=== PATIENT | male | born 1970 | race Caucasian/White ===

== ENCOUNTER 2018-08-22 10:45 | Day surgery (SDC) | payer BC ==
[~2018-08-22 10:45] MED LIST: CEFAZOLIN 1 Gram 1 GM/50 ML BAG IVPB ONE; CEFAZOLIN 1G VIAL IVP ONE; CEFAZOLIN 2 Gram 2 GM/50 ML BAG IVPB SCH; CELECOXIB 100 MG CAPSULE PO ONE; FAMOTIDINE 20MG TABLET PO ONE; MECLIZINE 25 MG TABLET PO ONE; METOCLOPRAMIDE 10 MG TABLET PO ONE; VANCOMYCIN HCL 1 MG in DEXTROSE 5 % IN WATER 250 ML IVPB ONE; WATER STERILE FOR INJECTION 20 ML VIAL MC ONE
[2018-08-22] MEDS ORDERED: GLYCOPYRROLATE 0.2 MG/ML ML IV ONE (10:46)
[2018-08-22] MEDS ORDERED: MIDAZOLAM HCL 2MG/2ML VIAL IV ONE (10:46)
[2018-08-22] MEDS ORDERED: TRANEXAMIC ACID 1,000 MG/10 ML ML IV ONE (10:46)
[2018-08-22] MEDS ORDERED: LIDOCAINE 2% MDV (20MG/ML) 20ML VIAL IV ONE (10:46)
[2018-08-22] MEDS ORDERED: PROPOFOL 10 MG/ML VIAL IV ONE (10:46)
[2018-08-22] MEDS ORDERED: KETAMINE HCL 100MG/1ML VIAL INJ ONE (10:46)
[2018-08-22 11:32] LABS: ABO GROUP O; ANTIBODY SCREEN NEGATIVE (NEGATIVE); RH TYPE NEGATIVE
[2018-08-22] MEDS ORDERED: RINGERS SOLUTION,LACTATED 1,000 ML IV ONE ×2 (13:49→14:23)
[2018-08-22] MEDS ORDERED: BUPIVACAINE 0.5% W/EPI MPF 30 ML VIAL SQ ONE (14:30)
[2018-08-22] MEDS ORDERED: HYDROMORPHONE HCL 2 MG/ML VIAL IM PRN (15:56)
[2018-08-22] MEDS ORDERED: BISACODYL 10 MG SUPP RC PRN (15:56)
[2018-08-22] MEDS ORDERED: ACETAMINOPHEN 325 MG TAB PO PRN (15:56)
[2018-08-22] MEDS ORDERED: ZOLPIDEM TARTRATE 5 MG TABLET PO PRN (15:56)
[2018-08-22] MEDS ORDERED: DIPHENHYDRAMINE HCL 25 MG CAPSULE PO PRN (15:56)
[2018-08-22] MEDS ORDERED: KETOROLAC 30 MG/ML VIAL IVP PRN ×2 (15:56)
[2018-08-22] MEDS ORDERED: NALOXONE 0.4 MG/1 ML VIAL IVP PRN (15:56)
[2018-08-22] MEDS ORDERED: ONDANSETRON HCL IV 4 MG/2 ML VIAL IVP PRN (15:56)
[2018-08-22] MEDS ORDERED: ACETAMINOPHEN W/ CODEINE 300MG/60MG TABLET PO PRN ×2 (15:56)
[2018-08-22] MEDS ORDERED: HYDROCODONE/APAP 10/325 TABLET PO PRN (15:56)
[2018-08-22] MEDS ORDERED: TRAMADOL HCL 50 MG TABLET PO PRN (15:56)
[2018-08-22] MEDS ORDERED: MAGNESIUM HYDROXIDE 30 ML UDC PO PRN (15:56)
[2018-08-22] MEDS ORDERED: AL HYDROX/MAG HYDROX 30ML UD PO PRN (15:56)
[2018-08-22] MEDS ORDERED: CEFAZOLIN 2 Gram 2 GM/50 ML BAG IVPB SCH (16:00)
[2018-08-22] MEDS: POTASSIUM CHLORIDE/D5-0.9%NACL 20 MEQ/1,000 ML BAG IV SCH (17:45)
[2018-08-22] MEDS: HYDROCODONE/APAP 10/325 TABLET PO PRN ×2 (17:55→22:12)
[2018-08-22] MEDS: CEFAZOLIN 1G VIAL IVP SCH (20:54)
[2018-08-22] MEDS: DOCUSATE SODIUM 100 MG CAPSULE PO SCH (21:00)
[2018-08-23] MEDS: POTASSIUM CHLORIDE/D5-0.9%NACL 20 MEQ/1,000 ML BAG IV SCH ×2 (01:50→07:55)
[2018-08-23] MEDS: HYDROCODONE/APAP 10/325 TABLET PO PRN ×3 (04:12→11:29)
[2018-08-23] MEDS: CEFAZOLIN 1G VIAL IVP SCH ×2 (04:24→11:29)
[2018-08-23 06:59] LABS: HEMATOCRIT 45.9 % (42.0-52.0); HEMOGLOBIN 15.3 gm/dl (14.0-18.0)
[2018-08-23 07:11] LABS: BLOOD UREA NITROGEN 12 mg/dL (6-20); CREATININE 0.7 mg/dL (0.7-1.2); EST GLOMERULAR FILTRATION RATE > 60 mL/min; GLUCOSE,RANDOM 162 mg/dL (74-109)
--- NOTE | 2018-08-23 08:27 | Rehab Evaluation ---
Patient Information - Patient Information Diagnosis: left knee primary OA Ordered Treatment: OT Evaluate and Treat Status: Initial Evaluation Surgery: Yes (left TKA) Date of Surgery: 08/22/18 Past Medical/Surgical Hx: PAST MEDICAL/SURGICAL HISTORY Past Surgical History TONSILECTOMY UVELECTOMY LEFT KNEE SCOPE PMH - Respiratory Hx Respiratory Disorders No PMH - Cardiovascular Hx Cardiovascular Disorders No Exercise Tolerance Good PMH - Neuro Hx Neurological Disorders No PMH - GI Hx Gastrointestinal Disorders No PMH - Hx Genitourinary Disorders No PMH - Endocrine Hx Endocrine Disorders No PMH - Musculoskeletal Hx Musculoskeletal Disorders Yes Hx Arthritis Yes PMH - Psych Hx Psychiatric Problems No PMH - Hematology/Oncology Hx Hematology/Oncology No Disorders Premorbid Status: Detail (Pt lives with significant other in a 2 story house. His bathroom is on the second floor but he has a commode if needed for use on the main level. He has a tub/shower combination and typically takes a bath. He has a standard height toilet. No grab bars are present in the bathroom. He is responsible for yard work, home mgmt and laundry tasks. He works and is on his feet all day but is not planning to return to work for 2 months. He has a commode and 2 wheeled walker.) Precautions: [place], Fall, Other (WBAT left LE) - Time With Patient Total Time Spent With Patient (Min): 30 Treatment Procedures: Detail (OT eval low complexity) Subjective Information - Subjective Information Per Patient Objective Data - Pain Pain Present: Yes (3-4/10) - Mental Status Patient Orientation: Oriented x3 - Visual Perception Appears within normal limits for therapeutic activities - ROM Within normal limits (Sabino UE AROM WNL) - Strength/Tone Within normal limits (Sabino UE strength WNL) - Coordination Appears within normal limits for therapeutic activities - Bed Mobility Independent (Ind with supine to sit) - Transfers Independent (Ind with sit to stand from EOB) - Balance Balance Sitting: Good Balance Standing: Good - Sensation Intact - Gait Detail (Pt ambulating in room with 2 wheeled walker and SBA) - ADL's/IADL's Detail (Pt educated and able to demonstrate learning of modified LE dressing techniques including doffing briefs and donning underwear, jeans and slip on shoes. Pt did require minimal assist to pull shoe over left heel but he reports his S.O. will assist if needed. Reviewed kitchen and shower safety and modifications, pt verbalized learning.) Therapy Assessment - Therapy Assessment Detail (Pt is Ind with modified LE dressing techniques.) Problem List - Problem List Occupational Therapy Problem List: Detail (No current IP OT problems identified.) Goals - Goals Occupational Therapy Goals: No current IP OT goals identified. Prognosis - Prognosis Good Plan - Plan Occupational Therapy Plan: No further IP OT recommended. Thank you for this referral.
[2018-08-23] MEDS: DOCUSATE SODIUM 100 MG CAPSULE PO SCH (09:24)
[2018-08-23] MEDS ORDERED: FERROUS SULFATE 325 MG TAB PO SCH (10:00)
[2018-08-23] MEDS ORDERED: RIVAROXABAN 10 MG TABLET PO SCH (10:00)
--- NOTE | 2018-08-23 10:10 | Operative Note ---
DATE OF SURGERY: 08/22/2018 PREOPERATIVE DIAGNOSIS: End-stage arthrosis of the left knee. POSTOPERATIVE DIAGNOSIS: End-stage arthrosis of the left knee. OPERATION: Cemented left total knee arthroplasty using [employer] II components with a size 6 Oxinium femur, a size 6 stem tibia baseplate, a 9 mm lipped tibial insert, and a 35 mm all plastic patella. STAFF SURGEON: Kenneth Marcos MD ANESTHESIA: Spinal. PREPARATION: Chloraprep. INDIVIDUAL CONSIDERATIONS: None. PROCEDURE: The patient was taken to the operating room, placed supine on the operating room table. He had a successful induction of a spinal anesthetic. The left lower extremity was prepped and draped in the usual fashion. The limb was elevated and tourniquet was inflated to 300 mmHg. The patient had a midline approach to the knee. Sharp dissection carried down through skin and subcutaneous tissue. Small veins were coagulated with a Bovie. A medial arthrotomy was performed. The patella was everted and the knee was flexed. The patient had exposed bone in the medial and patellofemoral compartments with large osteophytes. Fat pad was resected, ACL was sacrificed, and provisional anterior meniscectomies were performed. The capsule was released from the medial proximal tibia. The initial femoral home health care respiratory therapist hole was then made freehand. The intramedullary femoral cutting jig was placed. It was cut in 7.0 degrees of valgus and adjusted for rotation and secured with pins for a 10 mm resection. The initial transverse cut was then made. The skin guide was placed in the anterior and posterior home health care respiratory therapist holes. It was found that a size 6 would be appropriate. The anterior and posterior cuts followed by chamfer cuts were made. Osteophytes removed, and a size 6 trial was placed and found to fit well. The tibia was brought forward, and the remainder of the meniscal remnants removed with a Bovie. The extraarticular tibial cutting jig was placed. It was cut in neutral with a 3-degree AP slope. Care was taken to adjust for rotation and flexion using the extraarticular alignment guide and bony landmarks. It was set for a 9 mm resection keyed off the high lateral side and secured with pins. When cutting the tibia, care was taken to preserve the PCL insertion on the tibia. It was found that a size 6 would be appropriate. It was adjusted for rotation and secured with pins. With a 9 mm trial and femoral trial, there was excellent motion and stability, ligamentous balance, and rotation alignment were thought to be normal. Femoral home health care respiratory therapist holes were impacted and the tri-flange tibial stamp was impacted, and these trial components were removed. The patient had a very thick patella, and roughly 9 mm of bone was removed freehand. I could easily fit a 35 patella. The 3 home health care respiratory therapist holes were then drilled. The tourniquet was let down briefly to get bleeders posteriorly and then placed back up again. Then thorough irrigation to remove any visual or palpable debris. Bony surfaces were then dried. A size 6 stem tibia baseplate was cemented into place followed by impaction of the 9 mm lipped tibial insert followed by cementing in the size 6 Oxinium femur followed by cementing in the 35 mm patella. The implant surfaces were compressed, excess cement was removed. After the cement had set, there was excellent motion and stability, ligamentous balance, rotation alignment, and patellofemoral tracking were normal. No lateral release was required. After irrigation, tourniquet was let down. Hemostasis was obtained with a Bovie. The capsule was then closed with running #2 quill. Skin and subcutaneous tissue and periosteum were infiltrated with 30 mL of 0.5% Marcaine with epinephrine prior. The subcu was closed with running 0 quill, skin was closed with gilberto. Then 1 g of tranexamic acid was mixed with 30 mL of saline and injected into the subacromial space through a sterile 18-gauge needle, and a sterile bulky compressive FRANCESCO-type dressing was applied. The patient tolerated the procedure well. Needle and sponge counts were correct. Estimated blood loss was minimal, and he was taken back to recovery in good condition. There were no complications. DEEJAY
--- NOTE | 2018-08-23 11:36 | Rehab Evaluation ---
Patient Information - Patient Information Diagnosis: left knee primary OA Ordered Treatment: PT Evaluate and Treat Status: Initial Evaluation Surgery: Yes (left TKA) Date of Surgery: 08/22/18 Past Medical/Surgical Hx: PAST MEDICAL/SURGICAL HISTORY Past Surgical History TONSILECTOMY UVELECTOMY LEFT KNEE SCOPE PMH - Respiratory Hx Respiratory Disorders No PMH - Cardiovascular Hx Cardiovascular Disorders No Exercise Tolerance Good PMH - Neuro Hx Neurological Disorders No PMH - GI Hx Gastrointestinal Disorders No PMH - Hx Genitourinary Disorders No PMH - Endocrine Hx Endocrine Disorders No PMH - Musculoskeletal Hx Musculoskeletal Disorders Yes Hx Arthritis Yes PMH - Psych Hx Psychiatric Problems No PMH - Hematology/Oncology Hx Hematology/Oncology No Disorders Premorbid Status: Detail (Pt lives with significant other in a 2 story house. His bathroom is on the second floor but he has a commode if needed for use on the main level. He has a tub/shower combination and typically takes a bath. He has a standard height toilet. No grab bars are present in the bathroom. He is responsible for yard work, home mgmt and laundry tasks. He works and is on his feet all day but is not planning to return to work for 2 months. He has a commode and 2 wheeled walker.) Precautions: [place], Fall, Other (WBAT left LE) - Time With Patient Total Time Spent With Patient (Min): 25 Treatment Procedures: Detail (Initial Evaluation, gait training) Subjective Information - Subjective Information Per Patient (The patient had complaints of L knee pain level 3 -4 at the highest.) Objective Data - Mental Status Patient Orientation: Oriented x3 - Visual Perception Appears within normal limits for therapeutic activities - ROM Not within normal limits (The patient's L knee AROM was limited s/p surgery.) - Strength/Tone Not within normal limits (The patient's L LE strength was not tested s/p surgery, however was functional ie: the patient was able to complete a SLR. The patient's R LE was WNL.) - Bed Mobility Independent (The patient was independent with sit to supine transfer.) - Transfers Independent (The patient was independent with sit to and from stand transfer.) - Balance Balance Sitting: Good Balance Standing: Good - Sensation Intact - Gait Detail (The patient ambulated independently with front wheeled walker WBAT on the L LE a distance of 120 feet x 1. The patient ambulated on 3 steps with use of one railing and folded walker using proper technique with supervision for safety.) Therapy Assessment - Therapy Assessment Detail (The patient was independent with transfers, bed mobility and ambulation and has met all inpatient PT goals.) Patient Education - Patient Education Teaching Topic: Exercise/Activity (The patient was independent with TKA HEP including: SLR, quad sets, gluteal sets, hamstring sets, heel slides supine and ankle pumps.) Response: Return Demonstration Teaching Method: Discussion Teaching Recipient: Patient Barriers To Learning: Age Related Problem List - Problem List Physical Therapy Problem List: Detail (Decreased L knee AROM and strength as to be expected s/p surgery.) Occupational Therapy Problem List: Detail (No current IP OT problems identified.) Goals - Goals Physical Therapy Goals: The patient has met all inpatient PT goals and is discharged from inpt. PT Occupational Therapy Goals: No current IP OT goals identified. Plan - Plan Physical Therapy Plan: The patient is discharged from inpt. PT and is to receive Home PT. Occupational Therapy Plan: No further IP OT recommended. Thank you for this referral.
== END 2018-08-23 11:45 | disposition home health service (06) ==
LOC: SUR 10:45 → MEDSURG 16:39 → SUR 08-23 11:45
PROVIDERS: ATTEND Orthopaedic Surgery
DX: M17.12 Unilateral primary osteoarthritis, left knee (principal); G47.33 Obstructive sleep apnea (adult) (pediatric); E66.9 Obesity, unspecified
CPT/HCPCS: 27447; 01402; 64447; 85018; 85014; 80048; 86900; 86901; 86850; 93005; 76942; J3370; J3490 ×4; J0690; J3480; J7060; J7120